=== PATIENT | female | born 1980 | race Caucasian/White ===

== ENCOUNTER 2017-10-05 08:03 | Outpatient (CLI) | payer OTHER | END 2017-10-05 17:00 | disposition home or self-care (01) | LOC: MAMO-SONO 08:03 | DX: B37.3 Candidiasis of vulva and vagina (principal); A64 Unspecified sexually transmitted disease; E78.2 Mixed hyperlipidemia; E03.9 Hypothyroidism, unspecified; E55.9 Vitamin D deficiency, unspecified; N60.11 Diffuse cystic mastopathy of right breast; N60.12 Diffuse cystic mastopathy of left breast; Z12.31 Encounter for screening mammogram for malignant neoplasm of breast ==

== ENCOUNTER 2020-03-26 08:44 | Outpatient (CLI) | payer OTHER | END 2020-03-26 12:35 | disposition home or self-care (01) | LOC: MAMO-SONO 08:44 | DX: Z12.31 Encounter for screening mammogram for malignant neoplasm of breast (principal); D25.9 Leiomyoma of uterus, unspecified; N63.10 Unspecified lump in the right breast, unspecified quadrant; N63.20 Unspecified lump in the left breast, unspecified quadrant; R10.2 Pelvic and perineal pain ==

== ENCOUNTER → 2020-10-01 | Outpatient (CLI) | payer OTHER | END | disposition home or self-care (01) | LOC: SONOGRAMA 09-30 14:30 → MAMO-SONO 09-30 14:30 → SONOGRAMA 13:50 | PROVIDERS: ATTEND Surgery | DX: N60.02 Solitary cyst of left breast (principal) ==

== ENCOUNTER 2021-04-08 10:55 | Outpatient (CLI) | payer OTHER | END 2021-04-08 11:10 | disposition home or self-care (01) | LOC: MAMO-SONO 10:55 | PROVIDERS: ATTEND Surgery | DX: N64.89 Other specified disorders of breast (principal) ==

== ENCOUNTER 2022-04-27 10:51 | Outpatient (CLI) | payer OTHER | END 2022-04-27 11:02 | disposition home or self-care (01) | LOC: MAMO-SONO 10:51 | PROVIDERS: ATTEND Surgery | DX: N63.10 Unspecified lump in the right breast, unspecified quadrant (principal) ==

== ENCOUNTER 2023-05-05 09:40 | Outpatient (CLI) | payer OTHER | END 2023-05-05 09:52 | disposition home or self-care (01) | LOC: MAMO-SONO 09:40 | PROVIDERS: ATTEND Surgery | DX: N63.11 Unspecified lump in the right breast, upper outer quadrant (principal) ==

== ENCOUNTER 2024-05-29 10:31 | Outpatient (CLI) | payer OTHER | END 2024-05-29 10:39 | disposition home or self-care (01) | LOC: MAMO-SONO 10:31 | PROVIDERS: ATTEND Surgery | DX: N63.11 Unspecified lump in the right breast, upper outer quadrant (principal) ==

== ENCOUNTER 2025-04-15 14:20 | Outpatient (CLI) | payer OTHER | END 2025-04-15 14:27 | disposition home or self-care (01) | LOC: SONOGRAMA 14:20 | PROVIDERS: ATTEND Obstetrics & Gynecology Gynecology | DX: N93.9 Abnormal uterine and vaginal bleeding, unspecified (principal) ==

== ENCOUNTER 2025-06-02 08:36 | Outpatient (CLI) | payer OTHER | END 2025-06-02 08:44 | disposition home or self-care (01) | LOC: MAMO-SONO 08:36 | DX: N63.11 Unspecified lump in the right breast, upper outer quadrant (principal) ==